=== PATIENT | male | born 1985 | race Caucasian/White ===

== ENCOUNTER → 2020-02-28 | Outpatient (CLI) | payer OTHER ==
[~2020-02-28] VITALS: Ht 185.4 cm; Wt 93.0 kg
[~2020-02-28] MED LIST: CLONAZEPAM 0.50.5 M1 PO; NABUMETONE 500500 M1 PO; ONE DAILY MULT1 EAC3 PO; ZYRTEC-D TABLE1 EAC1 PO
--- NOTE | ~2020-02-28 | HPC ---
[facility] [address] [place] [address] PAIN MANAGEMENT CONSULTATION Name: JOE MENDEZ [facility]: [facility] [id number] Admission: 02/28/20 Attend Phys: Roby Valladares DO Discharge: Date of : 85 Report #: [id number] THIS REPORT FOR: cc: MAURICE - No family physician/PCP FAM - No family physician/PCP Roby Valladares DO ~ CC: [facility] physician/PCP Roby Valladares DATE OF SERVICE: 02/28/2020 CHIEF COMPLAINT: Chest wall pain. HISTORY OF PRESENT ILLNESS: As you know, the patient is a very pleasant 34-year-old male who reports a 3-month history of anterior and posterior chest wall pain. The patient states pain began spontaneously without inciting injury or trauma. He does believe that his symptoms began to exacerbate after buying a new mattress. Apparently, the patient is a stomach sleeper and over the past 3 months, he has been experiencing pain in the anterior chest that radiates towards the back in a nondermatomal distribution. He states his pain usually occurs somewhere between 2:00 and 4:00 a.m. and it is bilateral in nature. He describes the pain as aching in his chest with radiation towards the back. Pain does not increase with deep breathing and deep exhalation tends to improve pain. He denies any numbness and tingling that may come with the symptoms. He was originally advised he may be experiencing gastroesophageal reflux disease, but Nexium and Tums have not improved the symptoms. Given the bilateral nature of the pain, the patient was concerned of cardiac issues that he has been cleared from a cardiac standpoint. He discussed his case with his primary care physician in regards to the ongoing pain and was given a presumptive diagnosis of pleurisy, though symptoms did not correlate to that process. Due to lack of improvement with conservative treatment options and only seen tentative improvement in symptoms with a Medrol Dosepak, he was subsequently referred to our clinic to discuss options for treatment. The patient indicates today pain is continuous, describes the pain as aching, dull and pressure like in sensation when present. He describes the pain at a level of 8/10 when present daily average while sleeping 8/10, worst pain has been is 9/10. The patient states the pain is exacerbated with lying in bed. Pain is improved with getting out of bed and deep breathing. His pain improves throughout the day. He has been referred to our service to discuss treatment options. PAST MEDICAL HISTORY: None reported. PAST SURGICAL HISTORY: None. [address] [address] PAIN MANAGEMENT CONSULTATION Name: JOE MENDEZ Room #: REG [facility] [place]#: [id number] Admission: 02/28/20 Attend Phys: Roby Valladares DO Discharge: Date of : 85 Report #: [id number] SOCIAL HISTORY: The patient denies tobacco, alcohol, IV or illicit drug use. 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 He is working, not receiving workmen's compensation nor is trying to obtain disability benefits. He is not in litigation in regards to pain. He is unaccompanied at today's visit. REVIEW OF SYSTEMS: Positive for recent weight gain, fatigue and weakness, chest discomfort and chest wall pain, anxiety disorder. All other review of systems negative per 12-point review of systems other than those listed in history of present illness. Pain impact score 36/70 indicating moderate interference of daily activities secondary to pain. ALLERGIES: No known drug allergies. CURRENT MEDICATIONS: Multivitamin 1 tab per day, Zyrtec 10 mg once a day, clonazepam 0.5 mg b.i.d. p.r.n. anxiety. IMAGING: There is no imaging available. PHYSICAL EXAMINATION: VITAL SIGNS: Blood pressure 148/101, pulse is 90, respiratory rate 13, unlabored. The patient is 97% on room air, height 6 feet 1 inch tall, weight 205 pounds, BMI calculated 27.1. GENERAL: Well-developed, well-nourished, well-hydrated, 34-year-old male. He appears his stated age. He is placing current pain score at 8/10. HEENT: Normocephalic, atraumatic. Pupils equal, round, reactive to light. Extraocular muscles are intact. Sclerae nonicteric without injection. NEUROLOGIC: Cranial nerves 2-12 grossly intact. Speech fluent. The patient deemed an excellent historian. LUNGS: Clear, no wheeze, rhonchi or rales. MUSCULOSKELETAL: There is no pain with chest expansion for stimulation or exhalation. There are no changes in skin color or texture overlying the chest wall. There is no abnormal structural findings visually and through palpation. There is no anterior costochondral tenderness. CARDIOVASCULAR: Regular. No appreciable gallop, no rub. ABDOMEN: Soft, nontender, nondistended, normoactive bowel sounds. EXTREMITIES: Show no clubbing, no cyanosis, no edema. ASSESSMENT: 1. Chondritic chest pain. 2. Chest wall pain. 3. Myofascial pain. 4. Chronic intractable pain. [address] [address] PAIN MANAGEMENT CONSULTATION Name: JOE MENDEZ Room #: REG CLTessa Espana#: [id number] Admission: 02/28/20 Attend Phys: Roby Valladares DO Discharge: Date of : 85 Report #: [id number] PLAN: 1. Based on today's physical exam and history the patient has provided, the description the patient uses in regards to pain as well as lack of any specific palpatory changes elicited with evaluation today and no structural abnormalities and no pain with inhalation and exhalation, likely source of the patient's symptoms is myofascial in origin. Interestingly, the patient's symptoms began soon after he obtained a new mattress. Given the fact the patient is a stomach sleeper, I feel that he is causing anterior chest wall pressure, which ultimately radiates towards the back, which is fairly consistent with compressive forces on the anterior chest wall. The pressure the patient is experiencing is likely due to the more firm band that he is currently on. He is moved from an extremely soft bed to a firm bed and his symptoms soon began within days of receiving the new bedding. It has been consistent throughout. The patient does report improvement in symptoms with deep breathing and movement of the chest wall, pain improved throughout the day after arising from the sleeping position. Given all the findings and physical exam and the history he provides and what provoked his symptoms, it would appear that his symptoms were myofascial in origin and the chest wall symptoms are related to weightbearing on the chest wall during sleep. We strongly recommend either changing the bedding to a less firm mattress back to his Tempur-Pedic type style mattress or possibly training himself to sleep on his side or back, which actually is a much more anatomically correct position for sleep, which will improve in the low back pain he might be experiencing as well, but would alleviate the chest wall pain. The patient will consider his options. He is going to consider the possibility of adding a softer top to his current mattress to determine if his symptoms will improve with that type of simple change in bedding. 2. We have recommended the patient start an anti-inflammatory to decrease the chondritic pain the patient has been experiencing throughout the day. I have started the patient on nabumetone 500 mg dose 1 tab p.o. t.i.d. The patient will watch for dyspepsia, worsening of blood pressure, lower extremity edema with use of medication. If he notes these side effects, discontinue immediately. 3. I have placed a tentative appointment for the patient in 3 weeks for followup to discuss treatment options. We are hopeful the patient will have improvement in symptoms quite quickly with the adjustment in his bedding and the initiation of a consistent nonsteroidal anti-inflammatory. We will see him back in 3 weeks if he requires our assistance. 4. We wish to thank the referring physician for the opportunity to see this patient in consultation. We will see him back in 3 weeks and can keep you apprised of any changes in medication management or her therapy that might be recommended. By: 1234 [id number] Roby Valladares DO /nt
[2020-02-28 14:16] VITALS: BP 148/101
--- NOTE | 2020-02-28 14:24 | NUR ---
Pain Clinic Assessment: 1. History of Osteoarthritis: NONE History of Rheumatoid Arthritis: NONE 2. Height: 6 ft. 11 in. 210.8 cm. Weight: 205.0 lb. oz. 92.988 kg. Patient's BMI: 20.9 3. Vital Signs: BP: 148/101 Pulse: 90 Resp: 13 Temp: 02 Sat: 97 ECG Mon: 4. Pain Intensity: 8 5. Fall Risk: Dizziness: N Needs help standing or walking: N Fallen in the last 3 months: N Fall risk comments: 6. Patient on Blood Thinner: None 7. History of Hypertension: N 8. Opioid Therapy greater than 6 weeks: N Opiate Contract Signed: 9. Risk Assessment Tool Provided: 10. Functional Assessment Tool: 11. Recreational Drug Use: Never Drug Type: Tobacco Use: Never Smoker Tobacco Type: Amount or Packs/day: How Many Years: Alcohol Use: Yes Frequency: Special Occasions Quant:
== END ==
LOC: PAIN 07:42
DX: R07.89 Other chest pain (principal); M79.18 Myalgia, other site; G89.29 Other chronic pain; Z79.899 Other long term (current) drug therapy

== ENCOUNTER → 2020-03-20 | Outpatient (CLI) | payer OTHER ==
[~2020-03-20] VITALS: Ht 185.4 cm; Wt 97.3 kg
[~2020-03-20] MED LIST changes: +BACLOFEN20 MG PO; +DICLOFENAC SODI75 MG PO; +METHYLPREDNISOLO4 MG PO
[2020-03-20 08:11] VITALS: BP 138/94
--- NOTE | 2020-03-20 08:12 | NUR ---
Pain Clinic Assessment: 1. History of Osteoarthritis: NONE History of Rheumatoid Arthritis: NONE 2. Height: 6 ft. 1 in. 185.4 cm. Weight: 214.6 lb. oz. 97.342 kg. Patient's BMI: 28.3 3. Vital Signs: BP: 138/94 Pulse: 62 Resp: 18 Temp: 02 Sat: 100 ECG Mon: 4. Pain Intensity: 7 5. Fall Risk: Dizziness: N Needs help standing or walking: N Fallen in the last 3 months: N Fall risk comments: 6. Patient on Blood Thinner: None 7. History of Hypertension: N 8. Opioid Therapy greater than 6 weeks: N Opiate Contract Signed: 9. Risk Assessment Tool Provided: 10. Functional Assessment Tool: 11. Recreational Drug Use: Never Drug Type: Tobacco Use: Never Smoker Tobacco Type: Amount or Packs/day: How Many Years: Alcohol Use: Yes Frequency: Special Occasions Quant: 1
--- NOTE | 2020-03-21 12:32 | HPC ---
[facility] [address] [place] [address] PAIN MANAGEMENT CONSULTATION Name: JOE MENDEZ Room #: REG MOHINITessa Espan[place]#: [id number] Admission: 03/20/20 Attend Phys: Roby Valladares DO Discharge: Date of : 85 Report #: [id number] THIS REPORT FOR: cc: FAM - No family physician/PCP FAM - No family physician/PCP Roby Valladares DO ~ DATE OF SERVICE: 03/20/2020 REFERRING PHYSICIAN: Dr. Abel. CHIEF COMPLAINT: Chest wall pain. HISTORY OF PRESENT ILLNESS: As you know, the patient is a pleasant 35-year-old male who reports a 4-month history now of anterior chest and posterior chest wall pain. The patient was seen in consultation per the request of the referring physician on 02/28/2020, diagnosed with myofascial symptoms involving the chest wall. The description which the patient used were more about myofascial symptoms than any cardiac related issues. He has been cleared from Cardiology. We trialed the patient on medications in hopes of improving pain and he did receive some improvement, but not a long-term benefit. He returns today in followup visit stating that he trialled medications for gastroesophageal reflux disease, the second leading cause of chest wall pain without improvement. He continues to sleep on his abdomen which I believe is the main source of this patient's symptoms. He also spent a good portion of his day in a seated position, which exacerbates the diaphragm area. There is a possible contribution of the diaphragm itself given the distribution of symptoms, though treatment for this would be conservative. He returns today in followup visit to discuss treatment adjustments in hopes of improving pain. He does indicate that with deep chest movement, specifically with inhalation and exhalation, he does note some increasing pain which could be a diaphragmatic issue, but could also be chest wall symptoms. He returns to discuss options. He denies any injury or trauma. ALLERGIES: No known drug allergies. CURRENT MEDICATIONS: Nabumetone 500 mg 3 times a day, clonazepam 0.5 mg twice a day, multivitamin once a day, Zyrtec-D 1 tab per day. SOCIAL HISTORY: The patient denies tobacco, alcohol, IV or illicit drug use. 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 He is working, not receiving workmen compensation, unaccompanied today. IMAGING: No new imaging available. PHYSICAL EXAMINATION: [facility] [address] [place] [address] PAIN MANAGEMENT CONSULTATION Name: JOE MENDEZ ALAN [id number] Admission: 03/20/20 Attend Phys: Roby Valladares DO Discharge: Date of : 85 Report #: [id number] VITAL SIGNS: Blood pressure 138/94, pulse 62, respiratory rate 18 and unlabored. The patient is 100% on room air. Height 6 feet 1 inch tall, weight 214.6 pounds, BMI calculated 28.3. GENERAL: Well-developed, well-nourished, well-hydrated 35-year-old male appearing stated age. Pain is rated today around 7/10. HEENT: Normocephalic, atraumatic. Pupils equal, round, reactive. EXTREMITIES: Show no clubbing, no cyanosis, and no edema. MUSCULOSKELETAL: Tenderness to palpation is again noted on the anterior portion of the chest wall just underlying the lower side of ribs. There is also pain radiating towards the back, though it is not changed by palpation. There is no rash, lesions, or ulcerations overlying the area concerning of herpes zoster. Deep inhalation does increase pain over his typical distribution. There is no pleuritic finding on examination. ASSESSMENT: 1. Myofascial pain. 2. Chest wall pain. 3. Possible diaphragmatic injury. 4. Chronic intractable pain. PLAN: 1. The patient returns today in followup visit where we have discussed treatment options for myofascial pain and chest wall symptoms, the most likely source of the patient's pain. Within my differential, I do have diaphragmatic dysfunction as a possible cause of symptoms given the distribution of his pain as well as what exacerbates his symptoms. Though these are very similar in their treatment options, I do feel that we should be treating at least the myofascial symptoms initially and then looking towards treatment options for diaphragmatic dysfunction if this is actually the source. 2. We have plan to send the patient to physical therapy. He will begin his treatment as quickly as possible. We sent the patient to see [facility]. I believe they would be the best physical therapy group to address this chest wall pain. The patient was given a prescription to begin the physical therapy as quickly as possible. 3. We recommend the patient start methylprednisolone. We recommend 4 mg tablets to be taken 6 the first day and 6 the second day, followed by 5 the third and fourth day, then 4 the fifth and sixth day, then 3 the seventh and eighth day, then 2 the ninth and tenth day, and then 1 the eleventh and twelfth day. Prescription was given to the patient in written form. This will help with the anti-inflammatory effects and hopefully reduce the patient's chest wall symptoms. 4. Recommend discontinuation of nabumetone as the patient is seeing benefit with this medication. We will transfer to diclofenac potassium 75 mg dose 1 tab p.o. b.i.d. with meals. I have given the patient #60 tablets, 2 refills. 5. We will add baclofen to the patient's list of medications for myofascial treatment. I have given him 20 mg tablet, but advised a half tab initially. If [facility] [address] [place] [address] PAIN MANAGEMENT CONSULTATION Name: JOE MENDEZ Room #: REG [facility] Fernando.#: [id number] Admission: 03/20/20 Attend Phys: Roby Valladares DO Discharge: Date of : 85 Report #: [id number] this is not successful in alleviating some of the symptoms, then into a full tab or 20 mg dose. He is not to take it more than twice a day. I have given him #60 tablets, 2 refills. The patient will watch for side effects of sleepiness, disorientation, confusion, mental slowing with use of therapy. 6. We will see the patient back in followup visit in about 3 weeks. This will give the patient a chance to begin and could be consistent with his physical therapy and to assess efficacy of medications. <ELECTRONICALLY SIGNED> By: Roby Valladares DO 03/21/20 1232 [id number] [id number] Roby Valladares DO /nt
== END ==
LOC: PAIN 06:47
DX: R07.89 Other chest pain (principal); Z79.899 Other long term (current) drug therapy

== ENCOUNTER → 2020-04-10 | Outpatient (CLI) | payer OTHER ==
[~2020-04-10] VITALS: Ht 185.4 cm; Wt 96.3 kg
[~2020-04-10] MED LIST changes: +MEDROLDOSEPACK PO
[2020-04-10 08:21] VITALS: BP 139/91
--- NOTE | 2020-04-10 08:36 | NUR ---
Pain Clinic Assessment: 1. History of Osteoarthritis: NONE History of Rheumatoid Arthritis: NONE 2. Height: 6 ft. 1 in. 185.4 cm. Weight: 212.2 lb. oz. 96.253 kg. Patient's BMI: 28.0 3. Vital Signs: BP: 139/91 Pulse: 80 Resp: 14 Temp: 02 Sat: 98 ECG Mon: 4. Pain Intensity: 3-4 5. Fall Risk: Dizziness: N Needs help standing or walking: N Fallen in the last 3 months: N Fall risk comments: 6. Patient on Blood Thinner: None 7. History of Hypertension: N 8. Opioid Therapy greater than 6 weeks: N Opiate Contract Signed: 9. Risk Assessment Tool Provided: 0-low 10. Functional Assessment Tool: 11. Recreational Drug Use: Never Drug Type: Tobacco Use: Never Smoker Tobacco Type: Amount or Packs/day: How Many Years: Alcohol Use: Yes Frequency: Quant:
--- NOTE | 2020-04-17 09:19 | HPC ---
[facility] [place] [address] PAIN MANAGEMENT CONSULTATION Name: JOE MENDEZ Room #: REG Tessa Espan[place]#: [id number] Admission: 04/10/20 Attend Phys: Roby Valladares DO Discharge: Date of : 85 Report #: [id number] THIS REPORT FOR: cc: MAURICE - No family physician/PCP FAM - No family physician/PCP Roby Valladares DO ~ DATE OF SERVICE: 04/10/2020 CHIEF COMPLAINT: Chest wall pain. HISTORY OF PRESENT ILLNESS: As you know, the patient is a pleasant 35-year-old male who reported a 4-month history of anterior chest wall and posterior chest wall symptoms. He believes the pain began soon after he purchased a new bedding. The patient continues to sleep on his abdomen causing a chest pressure. He continues to experience symptoms that he now reports as significantly improved with medications initiated for therapy. It appeared during our physical exam he was suffering from costochondritis of the chest wall and treated conservatively. I believe his positioning at sleep is exacerbating his symptoms. He is also suffering from some gastroesophageal reflux, for which he has only trialed [id number] medications. He returns today in followup visit stating a pain level of no greater than 3/10. He is extremely pleased with response to the medications that were initiated at last visit, returning today to discuss ongoing symptoms. He denies new injury or trauma that may have led to symptom development. He is not having any difficulty with inhalation or exhalation as he had in the past. ALLERGIES: No known drug allergies. CURRENT MEDICATIONS: Nabumetone 500 mg 3 times a day, Klonopin 0.5 mg b.i.d., multivitamin 1 tab per day. SOCIAL HISTORY: The patient denies tobacco, alcohol, IV or illicit drug use. 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 He is working, not receiving workmen's compensation, unaccompanied today. IMAGING: No new imaging available. PHYSICAL EXAMINATION: VITAL SIGNS: Blood pressure 139/91, pulse 80, respiratory rate 14 and unlabored. The patient is 98% on room air, height 6 feet 1 inch tall, weight 212.2 pounds, BMI calculated 28.0. GENERAL: Well-developed, well-nourished, well-hydrated, 35-year-old male. He appears stated age, pain is rated today at 3/10. HEENT: Normocephalic, atraumatic. Pupils equal, round and reactive. EXTREMITIES: Show no clubbing, no cyanosis, no edema. [address] [address] PAIN MANAGEMENT CONSULTATION Name: JOE MENDEZ Room #: REG [facility]#: [id number] Admission: 04/10/20 Attend Phys: Roby Valladares DO Discharge: Date of : 85 Report #: [id number] MUSCULOSKELETAL: The patient has no tenderness to palpation over the posterior portion of the back today. Deep palpation of the paraspinal musculature causes no increase in overall pain. Palpation over the sternocostal junctions causes intensification of pain and pressure on the xiphoid process causes increase in symptoms. There are no erythema or skin color changes overlying the anterior chest wall. ASSESSMENT: 1. Myofascial pain. 2. Chest wall pain. 3. Costochondritis. 4. Chronic intractable pain. PLAN: 1. The patient returns today in followup visit with significant pain improvement. The Medrol Dosepak provided for pain control and reduced his symptoms by greater than 50%. He is now experiencing only some deep aching sensation over the chest wall anteriorly consistent with costochondritis. The patient is extremely pleased with medication, returning today in followup visit to discuss further treatment options to address his residual pain. The patient and I discussed at length today our request to adjust his sleeping pattern. Sleeping on one's abdomen is never recommended as they can cause chest wall pain as we are seeing in the patient, but also can lead to hyperextension of the lumbar lordosis leading to increased axial back pain and facet arthropathy symptoms. We recommend adjustments to either right-sided sleeping or on his back. We recommend right sided over left as gastroesophageal reflux disease is typically exacerbated with left sleeping and sleeping in a flat position. We recommend that he try to utilize right side sleeping and back sleeping, which would be more anatomically correct and would improve the symptoms he is experiencing. He will make these adjustments as possible. 2. We have agreed to provide the patient refill of his medications. Nabumetone has been used in the past with good efficacy. We adjusted his medication as he felt that he was not receiving benefit initially, but in retrospect, he feels the nabumetone was working well. He wishes to return to the nabumetone therapy 500 mg dose 1 tab p.o. t.i.d. p.r.n. I have given the patient #90 tablets, 2 refills. Prescription sent via e-scribed to local pharmacy. 3. We have agreed to provide the patient a Medrol Dosepak to be utilized only if his pain returns, he is not to utilize the medication for this low level of discomfort. We wish to limit his steroid exposure if at all possible reducing the potential of side effects. The patient is agreeable. 4. The patient will continue with the physical therapy he is currently undergoing. He believes this has been quite beneficial. We recommend he [facility] [address] [place] [address] PAIN MANAGEMENT CONSULTATION Name: JOE PEREZ Room #: REG CL M.R.#: [id number] Admission: 04/10/20 Attend Phys: Roby Valladares DO Discharge: Date of : 85 Report #: [id number] continue as long as he is seeing benefit and learning new techniques and treatment options. We are pleased to see the patient is doing well with physical therapy. 5. We will see the patient back in followup visit on an as needed basis. I am encouraged by the 50% improvement in overall pain with our conservative treatment and interventional treatments at this time do not appear necessary, though we have not fully ruled out the possibility of doing costosternal injections if necessary. We are hopeful to avoid this as it can be somewhat painful for the patients. We will see him back in followup visit on an as needed basis. <ELECTRONICALLY SIGNED> By: Roby Valladares DO 04/17/20 0919 [id number] Roby Valladares DO /nt
== END ==
LOC: PAIN 06:53
PROVIDERS: ATTEND Anesthesiology Pain Medicine
DX: M94.0 Chondrocostal junction syndrome [Tietze] (principal); R07.89 Other chest pain

== ENCOUNTER → 2020-05-29 | Outpatient (CLI) | payer OTHER ==
[~2020-05-29] VITALS: Ht 185.4 cm; Wt 93.7 kg
--- NOTE | ~2020-05-29 | HPC ---
[facility] [place] [address] PAIN MANAGEMENT CONSULTATION Name: JOE MENDEZ [id number] Admission: 05/29/20 Attend Phys: Roby Valladares DO Discharge: Date of : 85 Report #: [id number] THIS REPORT FOR: cc: Indio Son MD, Steven E. MD Johnson, James E. DO ~ CC: Roby Son MD DATE OF SERVICE: 05/29/2020 REFFERING PHYSICIAN: Indio Son MD CHIEF COMPLAINT: Neck pain, right upper extremity pain with paresthesias and chronic chest wall pain. HISTORY OF PRESENT ILLNESS: As you know, the patient is a very pleasant 35-year-old male who was initially seen in our clinic per the request of his primary care physician for anterior and posterior chest wall pain. We have made adjustments in his medication management and his sleep pattern and exercise program, which has significantly improved his chest wall discomfort. He is now placing the neck pain at no greater than 1/10 and this is at its worse. The patient does though report new onset of neck pain, right upper extremity pain and paresthesia with radiation of symptoms all the way into the thumb. He reports electrical like sensations and shooting sensations radiating from the neck all the way into the right hand. He denies injury or trauma, but believes he may have exacerbated symptoms while doing workouts at a local gym as he has restarted after COVID restrictions have been lifted. He returns today to discuss suspected cervical radiculopathy. ALLERGIES: No known drug allergies. CURRENT MEDICATIONS: Nabumetone 500 mg 3 times a day, Klonopin 0.5 mg b.i.d., multivitamin 1 tab per day. SOCIAL HISTORY: The patient denies tobacco, alcohol, IV or illicit drug use. 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 He is working, not receiving workmen's compensation, unaccompanied today. IMAGING: No new imaging available. PHYSICAL EXAMINATION: VITAL SIGNS: Blood pressure 130/90, pulse is 70, respiratory rate 16 and unlabored, the patient is 99% on room air, height 6 feet 1 inch tall, weight 206.6 pounds, BMI calculated 27.3. [address] [address] PAIN MANAGEMENT CONSULTATION Name: JOE MENDEZ [id number] Admission: 05/29/20 Attend Phys: Roby Valladares DO Discharge: Date of : 85 Report #: [id number] GENERAL: Well-developed, well-nourished, well-hydrated 35-year-old male appearing stated age, pain is rated today up to 2/10. HEENT: Normocephalic, atraumatic. Pupils equal, round and reactive. Extraocular muscles are intact. Speech fluent. The patient deemed an excellent historian. EXTREMITIES: Show no clubbing, no cyanosis, no edema. MUSCULOSKELETAL: The patient does have some tactile sensation changes along what appears to be the C6 dermatome on the right when compared to left. Tactile sensation is reduced, specifically over the thumb. Cervical provocation testing is equivocal with increasing ache running down the arm, but no specific radicular component was elicited. Cervical provocation testing does cause increased pain with lateral flexion and rotation to the right. Muscle bulk and tone is equal and symmetrical in comparing upper extremities. Deep tendon reflexes 2+/4 at biceps, brachialis and triceps. ASSESSMENT: 1. Cervical radiculopathy. 2. Cervical spondylosis with radiculopathy. 3. Chronic chest wall pain. 4. Myofascial pain. PLAN: 1. The patient has returned today in followup visit having noted improvement in his anterior and posterior chest wall pain with changes in medication management, changes in his workout routine and his bedding. This has improved his pain now down to no greater than 1/10 and he is very pleased with response to this therapy. He has returned today in followup visit with neck pain on the right, radiating into the right hand. He states that he may have exacerbated this while doing workout activities as he has recently returned to the gym. It does appear the patient is suffering from cervical radiculopathy involving the C6 dermatome based on his distribution of symptoms. The patient comes to us without x-ray imaging, though the distribution is fairly classic for cervical radiculopathy. We discussed the options for treatment. The following was discussed with the patient today. We discussed physical therapy, stretching exercises and traction techniques as a way to improve overall pain. We discussed medication management, adjusting his therapy to address neuropathic medications such as nortriptyline, amitriptyline, Cymbalta, Lyrica or gabapentin. We discussed cervical epidural injections under fluoroscopic guidance and ultimately surgical procedures to address cervical radiculopathy. After reviewing risks and benefits of all proposed treatment options, the patient chose to move forward with a cervical epidural injection under fluoroscopic guidance. The patient was advised risks and benefits of a cervical epidural injection. These risks include but are not necessarily limited to bleeding, bruising, [facility] [address] [place] [address] PAIN MANAGEMENT CONSULTATION Name: JOE MENDEZ Room #: REG [facility]#: [id number] Admission: 05/29/20 Attend Phys: Roby Valladares DO Discharge: Date of : 85 Report #: [id number] infection, worsening pain, no relief of pain, also risk of temporary or permanent muscle weakness, temporary or permanent nerve damage, possible paralysis and . The patient states understood and wished to proceed. 2. No medication changes made at today's visit. The patient will continue current medical therapy as previously prescribed. 3. We will see the patient back in followup visit on an as needed basis for possible next in the series of cervical epidural injections. We will keep you apprised of response to treatment as we address his new onset cervical radiculopathy. PROCEDURE NOTE DESCRIPTION OF PROCEDURE: C7-T1 cervical epidural steroid injection under fluoroscopic guidance. This is the first procedure of the first series that the patient is undergoing. After obtaining written consent, the patient was taken back to the fluoroscopy suite and placed in a prone position with separate pillows under chest and forehead to decrease cervical lordosis. The skin overlying the cervical area was prepped and draped in an aseptic fashion. The C7-T1 vertebral interspace was identified by AP fluoroscopy. The skin and subcutaneous tissue overlying the target site of injection was anesthetized using 3 mL of 1% lidocaine. A 20-gauge 3-1/2 inch Tuohy needle was advanced under fluoroscopic guidance toward the epidural space using a right parasagittal approach. The epidural space was identified using a loss of resistance to air technique. After negative aspiration for heme or cerebrospinal fluid, a total of 1 mL of Omnipaque was injected. A cervical epidurogram was confirmed using AP and oblique fluoroscopy. After negative aspiration for heme or cerebrospinal fluid, 5 mL of a solution containing 2 mL 40 mg per mL, 80 mg total triamcinolone along with 3 mL lidocaine 1% was injected in increments. Contrast spread was noted from posterior epidural space. The needle was then retracted approximately group home and the needle track was flushed with 1 mL of 1% lidocaine. There were no apparent new sensory deficits in the upper extremities present following the procedure. A sterile bandage was placed over the injection site. The heart rate, pulse oximetry and blood pressure were continuously monitored after the procedure. There were no apparent complications. The patient tolerated the procedure well and was carefully escorted in the recovery room in stable condition. After meeting discharge criteria, the patient was discharged home. By: [id number] Roby Valladares DO /nt
[2020-05-29 09:48] VITALS: BP 130/90
--- NOTE | 2020-05-29 09:55 | NUR ---
Pain Clinic Assessment: 1. History of Osteoarthritis: NONE History of Rheumatoid Arthritis: NONE 2. Height: 6 ft. 1 in. 185.4 cm. Weight: 206.6 lb. oz. 93.713 kg. Patient's BMI: 27.3 3. Vital Signs: BP: 130/90 Pulse: 70 Resp: 16 Temp: 02 Sat: 99 ECG Mon: 4. Pain Intensity: 2 5. Fall Risk: Dizziness: N Needs help standing or walking: N Fallen in the last 3 months: N Fall risk comments: 6. Patient on Blood Thinner: None 7. History of Hypertension: N 8. Opioid Therapy greater than 6 weeks: N Opiate Contract Signed: 9. Risk Assessment Tool Provided: 0-low 10. Functional Assessment Tool: 11. Recreational Drug Use: Never Drug Type: Tobacco Use: Never Smoker Tobacco Type: Amount or Packs/day: How Many Years: Alcohol Use: Yes Frequency: Special Occasions Quant: 1-2
== END ==
LOC: PAIN 06:46
PROVIDERS: ATTEND Anesthesiology Pain Medicine
DX: M54.2 Cervicalgia (principal); M47.22 Other spondylosis with radiculopathy, cervical region; Z79.899 Other long term (current) drug therapy; Z98.890 Other specified postprocedural states; Z88.8 Allergy status to other drugs, medicaments and biological substances